=== PATIENT | male | born 1930 | race African-American/Black ===

== ENCOUNTER 2017-06-07 14:48 | Inpatient (IN) | payer OTHER ==
[2017-06-07] VITALS (7 sets, daily range): BP systolic 85–108; BP diastolic 61–78
[~2017-06-07] VITALS: Ht 167.6 cm; Wt 72.4 kg
--- NOTE | ~2017-06-07 | HC ---
[facility] [place] [address] CONSULTATION Name: ZAYDA LEWIS Room #: 446-P ADM IN M.R.#: [id number] Admission: 06/07/17 Attend Phys: Michael Das Discharge: Date of : 30 Report #: [id number] THIS REPORT FOR: //name// CC: FAM unknown Michael Das INFECTIOUS DISEASES CONSULTATION REASON FOR CONSULTATION: I was asked to evaluate concerning bacteremia and sepsis. HISTORY OF PRESENT ILLNESS: The patient is an 87-year-old who transfers from longterm with gross hematuria following a change in his Ennis catheter. He had been passing clots. He has had red blood from his penis. He was complaining of pelvic and testicular pain. He presents to the Emergency Room for further evaluation. At that time, he was hypotensive and in atrial fibrillation. They had difficulty reinserting his Ennis catheter and Urology had to assist. Blood cultures did grow Proteus. Sensitivities are pending. No urinalysis or urine cultures been sent yet. His fever has resolved. Blood pressure is improved. He is alert, but confused. Last evening, I attempted to pull his Nenis catheter out. Now, he is in restraints. He did have a feeding tube in place and he pulled that out. There has been discussion about putting a PEG tube in. It is noted he was on palliative care prior to this admission and now that has rescinded. He is a full code. PAST MEDICAL AND SURGICAL HISTORY: Chronic kidney disease, congestive heart failure, atrial fibrillation, previous GI bleed, mesenteric arteriogram, cardiomyopathy, EF of 25-30%, hypertension, hepatitis, left knee surgery, rotator cuff surgery, hiatal hernia repair. ALLERGIES: None. MEDICATIONS: As noted on his MAR, now on ceftriaxone. FAMILY HISTORY AND SOCIAL HISTORY: Otherwise noncontributory other than he is a past smoker. REVIEW OF SYSTEMS: The patient is unable to give any details. His IV is functional. He has indwelling Ennis catheter in place. No diarrhea noted. No cough or sputum production. He has had no abdominal pain. PHYSICAL EXAMINATION: VITAL SIGNS: He is afebrile, blood pressure 108/65, heart rate was 108, MAP of 74. SKIN: He was edematous with 2+ anasarca, in wrist restraints. No decubiti. [facility] [address] [place] [address] CONSULTATION Name: ZAYDA LEWIS Room #: 446-P [facility] IN M.R.#: [id number] Admission: 06/07/17 Attend Phys: Michael Das Discharge: Date of : 30 Report #: [id number] CHEST: Decreased breath sounds in the bases. HEART: Regular, without murmur. ABDOMEN: Soft, did not appear tender. GENITOURINARY: Penis had some blood at the meatus. Had swelling in his scrotum. Genitals were tender, no mass. LABORATORY STUDIES: Hemoglobin 11.6; WBC 7.6; platelet count 136,000. Urinalysis is pending. Blood cultures, Proteus 2/2 cultures from 06/07/2017. Sodium 142, potassium 5, bicarb of 20, creatinine 3.2 up from 1.8 as his baseline. Liver function test normal. CT scan of the abdomen and pelvis showed bladder wall thickening, anasarca. No prostate abscess. IMPRESSION: Proteus bacteremia, suspect urinary tract source. He has had difficulty with his Ennis catheter. I suspect etiology would be from the bladder and prostate. CT scan did not show any abnormalities of his upper tract. RECOMMENDATION: Proteus would typical be sensitive to ceftriaxone. His white count has stabilized. He initially had a bandemia of 12%, that is down to 3% on last check. His thrombocytopenia has resolved. Hemodynamically, he remains stable. We will continue the ceftriaxone and await blood culture results for sensitivities. His urine studies will be obtained. I have discussed with nursing staff in attendance to proceed with this. Once sensitivities are back, we will determine duration and drug as we go forward. <ELECTRONICALLY SIGNED> By: Albaro Currie MD 06/14/17 1452 1057 2140 Albaro Currie MD /nt
--- NOTE | ~2017-06-07 | EKG ---
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1930 Requested By: Michael Das Order Number: [id number] MD: Jeremy He Measurements Intervals [place] Rate: 75 P: SC: QRS: 146 QRSD: 141 T: -62 QT: 372 QTc: 416 Interpretive Statements Atrial fibrillation Right bundle branch block Probable lateral infarct, age indeterminate Anteroseptal infarct, age indeterminate Compared to ECG 06/07/2017 15:53:40 No significant changes Electronically Signed On 06-19-2017 7:46:59 CDT by Jeremy He [email or web address] <ELECTRONICALLY SIGNED> By: Jeremy He MD, [facility] 06/19/17 0746 1112 111 Jeremy He MD, [facility] /EPI
--- NOTE | ~2017-06-07 | EKG ---
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
--- NOTE | ~2017-06-07 | EKG ---
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
--- NOTE | ~2017-06-07 | EKG ---
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1930 Requested By: Andrey Orozco Order Number: [id number] MD: Nestor Ewing Measurements Intervals [place] Rate: 109 P: [place]: QRS: 130 QRSD: 141 T: -26 QT: 350 QTc: 472 Interpretive Statements Atrial fibrillation Right bundle branch block Anteroseptal infarct, age indeterminate Baseline wander in lead(s) V4 Compared to ECG 03/30/2016 19:06:47 Increased heart rate Electronically Signed On 06-08-2017 12:41:18 CDT by Nestor Ewing [email or web address] <ELECTRONICALLY SIGNED> By: Nestor Ewing MD 06/08/17 1241 1553 1553 Nestor Ewing MD /DAYDAY
--- NOTE | ~2017-06-07 | HC ---
[facility] [place] [address] [place] [address] CONSULTATION Name: ZAYDA LEWIS JR Room #: 239-P ADM IN M.R.#: [id number] Admission: 06/07/17 Attend Phys: Michael Das Discharge: Date of : 30 Report #: [id number] THIS REPORT FOR: //name// CC: FAM unknown Michael Das INDICATION: Atrial fibrillation. HISTORY OF PRESENT ILLNESS: This is an 87-year-old gentleman presenting to [facility] with hematuria. The patient has a chronic Ennis and his reports that he developed bleeding in is Ennis catheter. The patient had been on hospice for history of cardiomyopathy and chronic renal disease. This was switched to palliative care and now he would like aggressive treatment for his current problems. The patient has a history of dementia, but is able to answer a few questions. He reports no symptoms of angina or dyspnea. PAST MEDICAL HISTORY: History of severe cardiomyopathy with LVH from 2015. History of chronic atrial fibrillation, managed with rate controlling medications. He has a history of GI bleed, not on anticoagulation therapy. He has a history of encephalopathy, baseline dementia. Chronic kidney disease. History of aspiration pneumonia, hypertension, and diabetes mellitus. ALLERGIES: None. MEDICATIONS AT HOME: Include Synthroid, Aricept 5 mg daily, atenolol 50 mg daily, digoxin, and torsemide 20 mg daily. SOCIAL HISTORY: Negative for tobacco use. FAMILY HISTORY: Unobtainable. REVIEW OF SYSTEMS: Unobtainable. PHYSICAL EXAMINATION: VITAL SIGNS: Blood pressure is 80s-90s/60, heart rate is 110-130 beats per minute. GENERAL APPEARANCE: This is an elderly appearing male, in no acute respiratory distress. HEAD AND EYES: Normocephalic. Sclerae are anicteric. ENT: Oral mucosa moist. NECK: Supple. LUNGS: Diminished breath sounds at the bases. CARDIAC: Tachycardic, S1, S2 positive. ABDOMEN: Soft, nontender. EXTREMITIES: No cyanosis, trace bilateral lower extremity edema. ECG reveals atrial fibrillation, heart rate of 109 beats per minute, right [facility] [address] [place] [address] CONSULTATION Name: ZAYDA LEWIS Room #: 239-P [facility] IN M.R.#: [id number] Admission: 06/07/17 Attend Phys: Michael Das Discharge: Date of : 30 Report #: [id number] bundle branch block. LABORATORY VALUES: White count is 5.0, hemoglobin is 13.1. Sodium is 138, creatinine is 3.5. Troponin is 0.57. Blood cultures are positive for Gram-negative rods on 2 sets. ASSESSMENT AND PLAN: 1. Hematuria secondary to Ennis trauma, Ennis was placed with cystoscopy by urology. 2. Hypotension, rule out sepsis with positive blood cultures. Continue with antibiotics. 3. Chronic atrial fibrillation, with fast heart rate secondary to #1 and #2. Hold on the beta ramya at this time in view of the low blood pressure. Manage with fluids, may require pressors. Currently on digoxin for rate control. 4. Cardiomyopathy, stable with no overt symptoms of congestion. We would discontinue the diuretic at this time. 5. Troponin elevation, in the indeterminate range. No evidence for angina. May be a false positive elevation in view of his renal insufficiency. 6. Chronic renal disease, follow creatinine level. Thank you for allowing me to participate in the care of your patient. <ELECTRONICALLY SIGNED> By: Nestor Ewing MD 06/09/17 0836 1121 1717 Nestor Ewing MD /nt
[~2017-06-07 14:48] MED LIST: ARICEPT 5 MG TAB5 MG PO; ATENOLOL 100MG100 M2 PO; ATENOLOL 50MG T50 M1 PO; AUGMENTIN 875875 MG PO; DEMADEX20 MG PO; ENOXAPARIN30 MG/0.1 SUBQ; K-DUR 20 MEQ T20 MEQ PO; KLOR-CON 1010 MEQ PO; LANOXIN 0.120.125 M1 PO; LASIX 20 MG TAB20 MG PO; LEVOTHYROXIN0.025 MG PO; MAG-OXIDE400 MG PO; MIRALAX17 GM PO; NORVASC5 MG PO; PANTOPRAZOLE SO40 M1 PO; POTASSIUM20 MEQ/15 PO; PYCNOGENOL PO; TRIAMCINOLONE A80 G2 TOP; TYLENOL325 MG PO; ZANTAC 150MG T150 MG PO
[2017-06-07 16:12] LABS: HEMATOCRIT 40.8 % (42.0-52.0); HEMOGLOBIN 13.1 gm/dL (14.0-18.0); MCH 31.8 pg (26.0-34.0); MCHC 32.1 g/dL (28.0-37.0); RBC 4.12 mil/uL (4.50-6.00); RDW 17.1 % (10.5-14.5)
[2017-06-07 16:14] LABS: MANUAL DIFF YES
[2017-06-07 16:22] LABS: CALCIUM 9.9 mg/dL (8.5-10.1); CREATININE 3.5 mg/dL (0.7-1.3); POTASSIUM 5.8 mmol/L (3.5-5.1)
[2017-06-07 16:37] LABS: ALBUMIN 2.5 g/dL (3.4-5.0); TOTAL BILIRUBIN 1.6 mg/dL (<0.1-1.0); TOTAL PROTEIN 7.9 g/dL (6.4-8.2); TROPONIN-I 0.57 ng/mL (<0.04-0.07)
[2017-06-07 17:09] LABS: ABSOLUTE NEUTROPHILS 4.6 thou/uL (1.4-8.2); TOTAL CELL COUNT 100
[2017-06-07 17:10] LABS: LARGE PLATELETS FEW; MACROCYTES 2+
[2017-06-07 17:11] LABS: PLATELET COUNT 53 thou/uL (150-400)
[2017-06-07] MEDS ORDERED: ASPIR 8181 MG PO (21:27)
[2017-06-07] MEDS ORDERED: COLACE100 MG PO (21:28)
[2017-06-07] MEDS ORDERED: OMEPRAZOLE 20 M20 MG (21:29)
[2017-06-07] MEDS ORDERED: NITROGLYCERIN0.4 MG SUBLING (21:30)
[2017-06-07] MEDS ORDERED: DILAUDID 2 MG TA2 MG PO (21:32)
[2017-06-07] MEDS ORDERED: LEVSIN-SL0.125 MG SUBLING (21:33)
[2017-06-08] VITALS (36 sets, daily range): BP systolic 63–151; BP diastolic 45–115
[2017-06-08 06:34] LABS: HEMOGLOBIN 12.3 gm/dL (14.0-18.0); MCH 32.1 pg (26.0-34.0); MCHC 32.5 g/dL (28.0-37.0); MCV 98.8 fL (80.0-100.0); RBC 3.84 mil/uL (4.50-6.00); RDW 17.3 % (10.5-14.5); WBC 7.2 thou/uL (4.0-11.0)
[2017-06-08 06:38] LABS: MANUAL DIFF YES
[2017-06-08 07:00] LABS: ALBUMIN 2.5 g/dL (3.4-5.0); CALCIUM 9.4 mg/dL (8.5-10.1); CREATININE 3.4 mg/dL (0.7-1.3); MAGNESIUM 2.3 mg/dL (1.8-2.4); TOTAL BILIRUBIN 1.5 mg/dL (<0.1-1.0); TOTAL PROTEIN 7.5 g/dL (6.4-8.2); TROPONIN-I 0.38 ng/mL (<0.04-0.07)
[2017-06-08 07:01] LABS: POTASSIUM 6.1 mmol/L (3.5-5.1)
[2017-06-08 07:24] LABS: ABSOLUTE NEUTROPHILS 6.8 thou/uL (1.4-8.2); TOTAL CELL COUNT 100
[2017-06-08 07:25] LABS: ANISOCYTOSIS 1+; LARGE PLATELETS FEW; POLYCHROMASIA OCCASIONAL
[2017-06-08 07:37] LABS: PLATELET COUNT 73 thou/uL (150-400); PLATELET ESTIMATE DECREASED
[2017-06-09] VITALS (40 sets, daily range): BP systolic 80–111; BP diastolic 53–90
[2017-06-09 05:39] LABS: HEMOGLOBIN 11.6 gm/dL (14.0-18.0); MCH 31.8 pg (26.0-34.0)
[2017-06-09 05:40] LABS: HEMATOCRIT 36.2 % (42.0-52.0); MCHC 32.1 g/dL (28.0-37.0); MCV 99.1 fL (80.0-100.0); RBC 3.65 mil/uL (4.50-6.00); RDW 16.6 % (10.5-14.5); WBC 7.6 thou/uL (4.0-11.0)
[2017-06-09 05:54] LABS: ALBUMIN 2.1 g/dL (3.4-5.0); CALCIUM 9.2 mg/dL (8.5-10.1); CREATININE 3.2 mg/dL (0.7-1.3); MAGNESIUM 2.1 mg/dL (1.8-2.4); PHOSPHORUS 4.4 mg/dL (2.5-4.9)
[2017-06-09 10:54] LABS: URINE BILIRUBIN NEGATIVE (Negative); URINE BLOOD 1+ (Negative); URINE COLOR YELLOW; URINE GLUCOSE-RANDOM* NEGATIVE (Negative); URINE KETONES NEGATIVE (Negative); URINE PROTEIN (DIPSTICK) 2+ (Negative); URINE SPECIFIC GRAVITY 1.015 (1.003-1.035)
[2017-06-09 10:56] LABS: URINE LEUKOCYTES-REFLEX 1+ (Negative)
[2017-06-09 11:11] LABS: AMORPHOUS URATES Few /LPF (None Seen); HYALINE CASTS 0-3 Few /LPF (None Seen); SQUAMOUS 0-3 Few /LPF (0-3); URINE RBC 3-10 Few /HPF (0-2); URINE WBC-REFLEX 6-15 Few /HPF (0-5)
[2017-06-10] VITALS (7 sets, daily range): BP systolic 100–128; BP diastolic 47–89
[2017-06-10 07:43] LABS: ALBUMIN 2.1 g/dL (3.4-5.0); CALCIUM 8.7 mg/dL (8.5-10.1); CREATININE 2.7 mg/dL (0.7-1.3); MAGNESIUM 2.1 mg/dL (1.8-2.4); PHOSPHORUS 4.3 mg/dL (2.5-4.9); TROPONIN-I 0.46 ng/mL (<0.04-0.07)
[2017-06-10 07:47] LABS: POTASSIUM 4.7 mmol/L (3.5-5.1)
[2017-06-10 14:58] LABS: HEMATOCRIT 38.7 % (42.0-52.0); HEMOGLOBIN 12.6 gm/dL (14.0-18.0); MCH 31.9 pg (26.0-34.0); MCHC 32.5 g/dL (28.0-37.0); MCV 98.3 fL (80.0-100.0); RBC 3.93 mil/uL (4.50-6.00); RDW 16.8 % (10.5-14.5); WBC 6.2 thou/uL (4.0-11.0)
[2017-06-11 03:30] VITALS: BP 125/73
[2017-06-11 06:35] VITALS: BP 126/79
[2017-06-11 06:54] LABS: HEMATOCRIT 38.7 % (42.0-52.0); HEMOGLOBIN 12.7 gm/dL (14.0-18.0); MCH 32.2 pg (26.0-34.0); MCHC 32.7 g/dL (28.0-37.0); MCV 98.4 fL (80.0-100.0); RBC 3.93 mil/uL (4.50-6.00); RDW 16.7 % (10.5-14.5); WBC 6.8 thou/uL (4.0-11.0)
[2017-06-11 07:10] LABS: ALBUMIN 2.1 g/dL (3.4-5.0); CALCIUM 9.2 mg/dL (8.5-10.1); CREATININE 2.6 mg/dL (0.7-1.3); PHOSPHORUS 3.5 mg/dL (2.5-4.9); POTASSIUM 3.8 mmol/L (3.5-5.1)
[2017-06-11 08:32] VITALS: BP 124/85
[2017-06-11 18:09] VITALS: BP 116/68
[2017-06-11 20:00] VITALS: BP 119/64
[2017-06-12 03:40] VITALS: BP 151/85
[2017-06-12 05:10] LABS: ALBUMIN 1.8 g/dL (3.4-5.0); CALCIUM 8.6 mg/dL (8.5-10.1); CREATININE 2.6 mg/dL (0.7-1.3); PHOSPHORUS 3.2 mg/dL (2.5-4.9); POTASSIUM 3.4 mmol/L (3.5-5.1)
[2017-06-12 08:00] VITALS: BP 116/61
[2017-06-12 16:00] VITALS: BP 139/86
[2017-06-12 19:30] VITALS: BP 121/69
[2017-06-12 23:43] VITALS: BP 98/66
[2017-06-13 04:09] VITALS: BP 99/38
[2017-06-13 04:48] LABS: ALBUMIN 1.8 g/dL (3.4-5.0); CALCIUM 8.8 mg/dL (8.5-10.1); CREATININE 2.3 mg/dL (0.7-1.3); MAGNESIUM 1.9 mg/dL (1.8-2.4); PHOSPHORUS 3.5 mg/dL (2.5-4.9); POTASSIUM 4.1 mmol/L (3.5-5.1)
[2017-06-13 06:03] VITALS: BP 131/65
[2017-06-13 08:32] VITALS: BP 114/63
[2017-06-13 16:16] VITALS: BP 113/48
[2017-06-13 20:40] VITALS: BP 95/65
[2017-06-14] VITALS: BP 104/56
[2017-06-14 04:00] VITALS: BP 97/46
[2017-06-14 07:35] VITALS: BP 105/55
[2017-06-14 07:44] LABS: ALBUMIN 1.6 g/dL (3.4-5.0); CALCIUM 8.9 mg/dL (8.5-10.1); CREATININE 2.2 mg/dL (0.7-1.3); MAGNESIUM 1.9 mg/dL (1.8-2.4); PHOSPHORUS 4.6 mg/dL (2.5-4.9); POTASSIUM 4.4 mmol/L (3.5-5.1)
[2017-06-14 15:33] VITALS: BP 99/50
[2017-06-14 21:58] VITALS: BP 97/66
[2017-06-15 00:09] VITALS: BP 121/60
[2017-06-15 05:03] VITALS: BP 138/71
[2017-06-15 05:33] LABS: HEMATOCRIT 41.4 % (42.0-52.0); HEMOGLOBIN 13.1 gm/dL (14.0-18.0); MCH 31.3 pg (26.0-34.0); MCHC 31.7 g/dL (28.0-37.0); MCV 98.7 fL (80.0-100.0); RBC 4.19 mil/uL (4.50-6.00); RDW 16.4 % (10.5-14.5)
[2017-06-15 07:36] VITALS: BP 113/81
[2017-06-15 12:58] VITALS: BP 111/55
[2017-06-15 13:28] LABS: URINE BILIRUBIN NEGATIVE (Negative); URINE BLOOD 2+ (Negative); URINE COLOR YELLOW; URINE GLUCOSE-RANDOM* NEGATIVE (Negative); URINE KETONES NEGATIVE (Negative); URINE LEUKOCYTES-REFLEX 1+ (Negative); URINE PROTEIN (DIPSTICK) NEGATIVE (Negative); URINE SPECIFIC GRAVITY 1.015 (1.003-1.035); URINE UROBILINOGEN 0.2 E.U./dl (0.2-1.0)
[2017-06-15 13:36] LABS: CASTS None Seen /LPF (None Seen); CRYSTALS None Seen /LPF (None Seen); HYALINE CASTS 0-3 Few /LPF (None Seen); SQUAMOUS None Seen /LPF (0-3)
[2017-06-15 13:37] LABS: URINE RBC 3-10 Few /HPF (0-2); URINE WBC-REFLEX 6-15 Few /HPF (0-5); YEAST-REFLEX Present (None Seen)
[2017-06-15 15:36] VITALS: BP 97/54
[2017-06-15 20:34] VITALS: BP 119/73
[2017-06-16 03:50] LABS: HEMATOCRIT 41.5 % (42.0-52.0); HEMOGLOBIN 13.5 gm/dL (14.0-18.0); MCH 32.1 pg (26.0-34.0); MCHC 32.6 g/dL (28.0-37.0); MCV 98.3 fL (80.0-100.0); RBC 4.22 mil/uL (4.50-6.00); RDW 15.8 % (10.5-14.5); WBC 15.5 thou/uL (4.0-11.0)
[2017-06-16 03:54] LABS: MANUAL DIFF YES
[2017-06-16 03:56] LABS: CALCIUM 8.8 mg/dL (8.5-10.1); POTASSIUM 4.7 mmol/L (3.5-5.1)
[2017-06-16 04:19] VITALS: BP 123/64
[2017-06-16 05:50] LABS: ABSOLUTE NEUTROPHILS 15.2 thou/uL (1.4-8.2); LARGE PLATELETS SEVERAL; TOTAL CELL COUNT 100
[2017-06-16 05:51] LABS: PLATELET COUNT 54 thou/uL (150-400); PLATELET ESTIMATE DECREASED
[2017-06-16 08:00] VITALS: BP 113/63
[2017-06-16 16:00] VITALS: BP 119/62
[2017-06-16 20:40] VITALS: BP 114/54
[2017-06-17 03:25] VITALS: BP 135/67
[2017-06-17 05:38] LABS: CALCIUM 8.8 mg/dL (8.5-10.1); CREATININE 1.9 mg/dL (0.7-1.3); POTASSIUM 5.1 mmol/L (3.5-5.1)
[2017-06-17 09:35] VITALS: BP 107/77
[2017-06-17 12:49] VITALS: BP 107/77
[2017-06-17 15:15] VITALS: BP 117/57
[2017-06-17 18:04] LABS: HEMATOCRIT 41.8 % (42.0-52.0); HEMOGLOBIN 13.8 gm/dL (14.0-18.0); MCV 96.8 fL (80.0-100.0); PLATELET COUNT 65 thou/uL (150-400); RBC 4.32 mil/uL (4.50-6.00); RDW 16.5 % (10.5-14.5); WBC 13.7 thou/uL (4.0-11.0)
[2017-06-17 18:07] LABS: MANUAL DIFF YES
[2017-06-17 18:20] LABS: INR 1.4; PROTIME 14.5 Seconds (9.3-11.4)
[2017-06-17 18:25] LABS: ANISOCYTOSIS 1+; TOTAL CELL COUNT 100
[2017-06-17 18:26] LABS: LARGE PLATELETS FEW; POLYCHROMASIA OCCASIONAL
[2017-06-17 21:10] VITALS: BP 92/43
[2017-06-17 23:49] VITALS: BP 112/58
[2017-06-18 05:30] VITALS: BP 107/62
[2017-06-18 05:49] LABS: ALBUMIN 1.8 g/dL (3.4-5.0); CALCIUM 9.1 mg/dL (8.5-10.1); CREATININE 1.8 mg/dL (0.7-1.3); PHOSPHORUS 4.7 mg/dL (2.5-4.9); POTASSIUM 4.4 mmol/L (3.5-5.1)
[2017-06-18 07:52] VITALS: BP 139/64
[2017-06-18 17:22] LABS: ABG SAMPLE TYPE ARTERIAL; BE(vivo) -6.3 mmol/L (-2 to +3); HCO3 17.5 mmol/L (22.0-26.0); LACTATE 2.05 mmol/L (0.5-2.0); O2(CT) 18.1 mL/dL (15.0-23.0); O2Hb 96.4 % (92.0-98.0); PO2 101.1 mmHg (80.0-100.0); STICK SITE L.RADIAL; pH 7.384 (7.360-7.450); sO2 97.6 % (92.0-98.0); tCO2 18.4 mmol/L (24.0-30.0)
[2017-06-18 22:40] VITALS: BP 113/45
[2017-06-19 05:30] LABS: ALBUMIN 1.8 g/dL (3.4-5.0); CALCIUM 8.7 mg/dL (8.5-10.1); CREATININE 2.2 mg/dL (0.7-1.3); MAGNESIUM 2.3 mg/dL (1.8-2.4); POTASSIUM 4.6 mmol/L (3.5-5.1); TOTAL BILIRUBIN 3.1 mg/dL (<0.1-1.0); TOTAL PROTEIN 5.5 g/dL (6.4-8.2)
[2017-06-19 06:15] VITALS: BP 93/51
[2017-06-19 08:35] VITALS: BP 85/44
[2017-06-19 13:48] VITALS: BP 92/42
[2017-06-19 14:09] VITALS: BP 84/53
[2017-06-19 20:00] VITALS: BP 89/53
[2017-06-20 04:00] VITALS: BP 122/66
[2017-06-20 07:33] VITALS: BP 100/67
[2017-06-20 15:52] VITALS: BP 69/33
[2017-06-20 18:07] VITALS: BP 106/36
[2017-06-20 20:00] VITALS: BP 97/46
[2017-06-21 04:24] VITALS: BP 106/58
[2017-06-21 16:04] VITALS: BP 99/54
== END 2017-06-21 18:06 | DRG 871 ==
LOC: ER 14:48 → EROBS 18:13 → 4S 18:13 → ICU 20:23 → 4S 06-10 01:43 → 2N 06-18 19:25 → 4E 06-19 13:38
PROVIDERS: Hospitalist; Internal Medicine Endocrinology, Diabetes & Metabolism; Internal Medicine Infectious Disease; Physician Assistant; Specialist
PROC: 02HV33Z Insertion of Infusion Device into Superior Vena Cava, Percutaneous Approach (ICD-10-PCS; principal; 2017-06-17)
PROC: B548ZZA Ultrasonography of Superior Vena Cava, Guidance (ICD-10-PCS; principal; 2017-06-17)
DX: A41.59 Other Gram-negative sepsis (principal); E43 Unspecified severe protein-calorie malnutrition; N17.9 Acute kidney failure, unspecified; I13.0 Hypertensive heart and chronic kidney disease with heart failure and stage 1 through stage 4 chronic kidney disease, or unspecified chronic kidney disease; I50.20 Unspecified systolic (congestive) heart failure; E87.1 Hypo-osmolality and hyponatremia; E87.0 Hyperosmolality and hypernatremia; I42.9 Cardiomyopathy, unspecified; N39.0 Urinary tract infection, site not specified; E46 Unspecified protein-calorie malnutrition; T83.83XA Hemorrhage due to genitourinary prosthetic devices, implants and grafts, initial encounter; N40.0 Benign prostatic hyperplasia without lower urinary tract symptoms; N18.9 Chronic kidney disease, unspecified; R31.9 Hematuria, unspecified; K44.9 Diaphragmatic hernia without obstruction or gangrene; K75.9 Inflammatory liver disease, unspecified; D69.6 Thrombocytopenia, unspecified; Z66 Do not resuscitate; Z51.5 Encounter for palliative care; I95.9 Hypotension, unspecified; F03.90 Unspecified dementia, unspecified severity, without behavioral disturbance, psychotic disturbance, mood disturbance, and anxiety; I48.2 Chronic atrial fibrillation; Y83.8 Other surgical procedures as the cause of abnormal reaction of the patient, or of later complication, without mention of misadventure at the time of the procedure; R13.10 Dysphagia, unspecified; K29.50 Unspecified chronic gastritis without bleeding; Z87.891 Personal history of nicotine dependence; Z79.01 Long term (current) use of anticoagulants; Z68.25 Body mass index [BMI] 25.0-25.9, adult; Y92.89 Other specified places as the place of occurrence of the external cause
CPT/HCPCS: 10081; 10100; 10183; 10203; 27001